=== PATIENT | female | born 1965 | race Caucasian/White ===

== ENCOUNTER → 2024-05-23 | Outpatient (CLI) | payer MEDICAID, SELFPAY ==
--- NOTE | 2024-05-23 14:22 | XR_ITS ---
Examination: Cervical spine 3 views Technique one AP lateral coned AP odontoid cervical spine 3 views Exam date and time: May 23, 2024 1522 hours INDICATIONS: Neck pain one year. FINDINGS: Straightening normal cervical lordosis Moderate degenerative disc disease C4-C5 Advanced degenerative disc disease C5-C6, C6-C7 Intact odontoid No cervical fracture IMPRESSION: Advanced degenerative disc disease C5-C6, C6-C7
== END | disposition home or self-care (01) ==
LOC: CDIM 14:14
PROVIDERS: PCP Nurse Practitioner Family; Referring Provider Nurse Practitioner Family; Visit Provider Nurse Practitioner Family
DX: M50.322 Other cervical disc degeneration at C5-C6 level (principal)
CPT/HCPCS: 72040

== ENCOUNTER → 2024-08-27 | Outpatient (CLI) | payer MEDICAID, SELFPAY ==
--- NOTE | 2024-08-27 08:30 | XR_ITS ---
Examination: MRI cervical spine without intravenous contrast Date and time of exam: August 27, 2024 0842 hrs. Indications: Neck pain radiating to both arms 2 years Technique: Multiple axial and sagittal sections of the cervical spine to been obtained. T2 weighted sagittal sections, TR 3, 270, TE 117 T1-weighted sagittal sections, TR 500, TE 11 T1-weighted axial sections, TR 607, TE 12, axial sections TR 18, TE 27 and T2 weighted transverse sections, TR 3920, TE 122. Findings: Adequate alignment cervical vertebral bodies No cervical fracture Diffuse cervical disc desiccation Mild disc narrowing C5-C6 C6-C7 No localized enlargement cervical cord C2-C3 no disc protrusion C3-C4 no disc protrusion C4-C5 2 mm central subarticular osteophyte disc complex, moderate right neural foraminal stenosis C5-C6 2 mm central subarticular osteophyte disc complex, moderate left neural foraminal stenosis C6-C7 2 mm central subarticular osteophyte disc complex, advanced left neural foraminal stenosis C7-T1 no disc protrusion Impression: C4-C5 moderate right neural foraminal stenosis C5-C6 moderate left neural foraminal stenosis C6-C7 advanced left neural foraminal stenosis
== END | disposition home or self-care (01) ==
LOC: SMRI 08:25
PROVIDERS: PCP Nurse Practitioner Family; Referring Provider Nurse Practitioner Family; Visit Provider Nurse Practitioner Family
DX: M48.02 Spinal stenosis, cervical region (principal)
CPT/HCPCS: 72141